=== PATIENT | female | born 1940 | race Caucasian/White ===

== ENCOUNTER → 2019-05-01 10:51 | Outpatient (CLI) | payer MEDICARE, SELFPAY ==
[2019-05-01 11:31] LABS: RBC Urine None Seen (0-5/HPF)
[2019-05-01 12:13] LABS: Add Manual Diff / Slide Review NO; Basophils Absolute Auto 0 /uL (0-100); Basophils Percent Auto 0.8 % (0-2); Eosinophils Absolute Auto 0 /uL (0-450); Eosinophils Percent Auto 0.8 % (2-4); Hematocrit 45.9 % (36-46); Hemoglobin 15.7 g/dL (12.0-16.0); Lymphocytes Absolute Auto 2000 /uL (1100-4500); Lymphocytes Percent Auto 32.3 % (25-40); Mean Corpuscular HGB Conc 34.3 % (30-36); Mean Corpuscular Hemoglobin 29.1 PG (26-34); Mean Corpuscular Volume 84.7 fL (80-100); Monocytes Absolute Auto 500 /uL (0-900); Monocytes Percent Auto 8.1 % (3-14); Neutrophils Absolute Auto 3700 /uL (1500-7000); Platelet Count 251 X10^3/uL (150-400); Red Blood Cell Count 5.41 X10^6/uL (4.0-5.2); Red Cell Distribution Width 13.9 % (11.6-14.8); White Blood Cell Count 6.3 X10^3/uL (4.5-11.0)
[2019-05-01 12:38] LABS: BUN Creatinine Ratio 24.4 (6-22); Blood Urea Nitrogen 22 mg/dL (7-17); Calcium 10.3 mg/dL (8.4-10.2); Carbon Dioxide 29 mmol/L (22-32); Chloride 99 mmol/L (98-107); Estimated Glomerular Filt Rate > 60.0 mL/min (>60); Glucose 109 mg/dL (80-110); HEMOLYSIS < 15 (0-50); Potassium 4.1 mmol/L (3.4-5.1); Sodium 140 mmol/L (137-145)
[2019-05-01 13:05] LABS: Appearance Urine UA SL CLOUDY; Bilirubin Urine UA NEGATIVE (NEGATIVE); Color Urine UA YELLOW; Glucose Urine UA NEGATIVE (Negative); Ketones Urine UA NEGATIVE (NEGATIVE); Leukocyte Esterase Urine UA 1+ (NEGATIVE); Nitrite Urine UA POSITIVE (Negative); Occult Blood Urine UA NEGATIVE (Negative); Protein Urine UA NEGATIVE (Negative); Specific Gravity Urine UA 1.015 (1.000-1.035); Urobilinogen Urine UA 0.2 E.U./dL (0.2)
[2019-05-01 13:28] LABS: pH Urine UA 6.5 (4.5-8.0)
[2019-05-01 13:41] LABS: Bacteria Urine Many (>30); Culture Indicated Urine Specimen Cultured; Squamous Epithelial Cell Urine 1-5 /HPF (0-5/HPF); WBC Urine 10-30/HPF (0-5/HPF)
== END ==
PROVIDERS: PCP Internal Medicine; Referring Provider Orthopaedic Surgery; Visit Provider Orthopaedic Surgery
DX: Z01.818 Encounter for other preprocedural examination (principal); Z01.812 Encounter for preprocedural laboratory examination; N39.9 Disorder of urinary system, unspecified; Z13.1 Encounter for screening for diabetes mellitus; R73.9 Hyperglycemia, unspecified
CPT/HCPCS: 36415; 80048; 81001; 83036; 85025; 87077; 87086; 87186; 93005; 93010

== ENCOUNTER → 2020-01-01 18:43 | Outpatient (ROUT) | payer MEDICARE, SELFPAY ==
[2020-01-01 19:31] LABS: Aspartate Aminotransferase 25 IU/L (14-36); BUN Creatinine Ratio 28.9 (6-22); Blood Urea Nitrogen 22 mg/dL (7-17); C-Reactive Protein Quant 8.3 mg/dL (<1.0); Calcium 9.3 mg/dL (8.4-10.2); Carbon Dioxide 31 mmol/L (22-32); Chloride 101 mmol/L (98-107); Cholesterol 194 mg/dL (140-199); Estimated Glomerular Filt Rate > 60.0 mL/min (>60); Glucose 98 mg/dL (80-110); HDL Cholesterol 40 mg/dL (40-60); HEMOLYSIS < 15 (0-50); LDL Cholesterol Calculated 138 mg/dL (<100); Potassium 3.9 mmol/L (3.4-5.1); Sodium 138 mmol/L (137-145); Triglycerides 79 mg/dL (35-150); Uric Acid 6.5 mg/dL (2.5-6.2)
[2020-01-01 19:42] LABS: Hematocrit 43.4 % (36-46); Hemoglobin 14.3 g/dL (12.0-16.0); Mean Corpuscular HGB Conc 32.9 % (30-36); Mean Corpuscular Hemoglobin 28.5 PG (26-34); Mean Corpuscular Volume 86.5 fL (80-100); Platelet Count 332 X10^3/uL (150-400); Red Blood Cell Count 5.02 X10^6/uL (4.0-5.2); Red Cell Distribution Width 13.8 % (11.6-14.8)
[2020-01-01 20:19] LABS: White Blood Cell Count 7.8 X10^3/uL (4.5-11.0)
[2020-01-01 20:23] LABS: Eosinophils Percent Auto 0.8 % (2-4); Lymphocytes Percent Auto 26.1 % (25-40); Monocytes Percent Auto 5.1 % (3-14); Neutrophils Percent Auto 67.1 % (50-75)
[2020-01-01 20:24] LABS: Add Manual Diff / Slide Review NO; Basophils Absolute Auto 100 /uL (0-100); Basophils Percent Auto 0.9 % (0-2); Eosinophils Absolute Auto 100 /uL (0-450); Lymphocytes Absolute Auto 2000 /uL (1100-4500); Monocytes Absolute Auto 400 /uL (0-900); Neutrophils Absolute Auto 5200 /uL (1500-7000)
[2020-01-01 20:25] LABS: Erythrocyte Sedimentation Rate 59 MM/HR (0-20)
== END ==
PROVIDERS: PCP Internal Medicine; Visit Provider Internal Medicine
DX: I10 Essential (primary) hypertension (principal); E78.2 Mixed hyperlipidemia; M25.50 Pain in unspecified joint; E79.0 Hyperuricemia without signs of inflammatory arthritis and tophaceous disease
CPT/HCPCS: 80048; 80061; 84450; 84550; 85025; 85651; 86140

== ENCOUNTER → 2020-03-06 19:18 | Outpatient (ROUT) | payer MEDICARE, SELFPAY ==
[2020-03-06 19:54] LABS: Add Manual Diff / Slide Review NO; Basophils Absolute Auto 100 /uL (0-100); Basophils Percent Auto 1.1 % (0-2); Eosinophils Absolute Auto 100 /uL (0-450); Eosinophils Percent Auto 1.2 % (2-4); Hematocrit 44.5 % (36-46); Hemoglobin 14.9 g/dL (12.0-16.0); Lymphocytes Absolute Auto 1600 /uL (1100-4500); Lymphocytes Percent Auto 26.2 % (25-40); Mean Corpuscular HGB Conc 33.4 % (30-36); Mean Corpuscular Hemoglobin 28.7 PG (26-34); Mean Corpuscular Volume 86.1 fL (80-100); Monocytes Absolute Auto 400 /uL (0-900); Monocytes Percent Auto 6.5 % (3-14); Neutrophils Absolute Auto 3900 /uL (1500-7000); Platelet Count 223 X10^3/uL (150-400); Red Blood Cell Count 5.17 X10^6/uL (4.0-5.2)
[2020-03-06 20:00] LABS: Alanine Aminotransferase 16 IU/L (<35); Albumin 3.8 g/dL (3.5-5.0); Albumin Globulin Ratio 1.2 (1.0-2.8); Alkaline Phosphatase 87 U/L (38-126); Aspartate Aminotransferase 26 IU/L (14-36); BUN Creatinine Ratio 22.2 (6-22); Bilirubin Total 0.4 mg/dL (0.2-1.3); Bilirubin Unconjugated 0.4 mg/dL (0.0-1.1); Blood Urea Nitrogen 18 mg/dL (7-17); Calcium 9.3 mg/dL (8.4-10.2); Carbon Dioxide 33 mmol/L (22-32); Chloride 100 mmol/L (98-107); Estimated Glomerular Filt Rate > 60.0 mL/min (>60); Globulin 3.2 g/dL (1.7-4.1); Glucose 153 mg/dL (80-110); HEMOLYSIS < 15 (0-50); Potassium 3.6 mmol/L (3.4-5.1); Sodium 138 mmol/L (137-145); Uric Acid 5.9 mg/dL (2.5-6.2)
== END ==
PROVIDERS: PCP Internal Medicine; Visit Provider Internal Medicine
DX: M10.9 Gout, unspecified (principal)
CPT/HCPCS: 80048; 80076; 84550; 85025

== ENCOUNTER → 2020-05-19 18:55 | Outpatient (ROUT) | payer MEDICARE, SELFPAY ==
[2020-05-19 19:37] LABS: BUN Creatinine Ratio 26.7 (6-22); Blood Urea Nitrogen 23 mg/dL (7-17); Calcium 9.9 mg/dL (8.4-10.2); Carbon Dioxide 29 mmol/L (22-32); Chloride 99 mmol/L (98-107); Estimated Glomerular Filt Rate > 60.0 mL/min (>60); Glucose 235 mg/dL (80-110); HEMOLYSIS < 15 (0-50); Potassium 3.4 mmol/L (3.4-5.1); Sodium 137 mmol/L (137-145); Uric Acid 4.1 mg/dL (2.5-6.2)
== END ==
PROVIDERS: PCP Internal Medicine; Visit Provider Internal Medicine
DX: M10.9 Gout, unspecified (principal)
CPT/HCPCS: 80048; 84550

== ENCOUNTER → 2020-06-23 19:35 | Outpatient (ROUT) | payer MEDICARE, SELFPAY ==
[2020-06-23 20:36] LABS: Free T4, Direct Thyroxine 1.17 ng/dL (0.78-2.19)
[2020-06-23 20:48] LABS: Thyroid Stimulating Hormone 2.11 uIU/mL (0.47-4.68)
[2020-06-23 20:59] LABS: Free T3, Triiodothyronine Free 2.95 pg/mL (2.77-5.27)
== END ==
PROVIDERS: PCP Internal Medicine; Visit Provider Internal Medicine
DX: E11.9 Type 2 diabetes mellitus without complications (principal)
CPT/HCPCS: 84436; 84439; 84443; 84481

== ENCOUNTER 2020-07-31 17:25 | Observation (INO) | payer MEDICARE, SELFPAY ==
[2020-07-31] VITALS (10 sets, daily range): BP systolic 134–219; BP diastolic 66–102; PULSE 56–74; RESP 10–30; TEMP 36.7–37.1; O2SAT 96–99; BMI 31.1
--- NOTE | 2020-07-31 17:53 | DI.CT.S_ITS ---
PROCEDURE: CT HEAD/BRAIN WO CON INDICATIONS: Vision changes, concern for CVA/TIA TECHNIQUE: Noncontrast 4.5 mm thick angled axial sections acquired from the foramen magnum to the vertex, with coronal and sagittal reformats. For radiation dose reduction, the following was used: automated exposure control, adjustment of mA and/or kV according to patient size. COMPARISON: None. FINDINGS: Image quality: Excellent. CSF spaces: Basal cisterns are patent. No extra-axial fluid collections. Ventricles are normal in size and shape. Brain: No midline shift. No intracranial masses or hemorrhage. Lee-white matter interface is normal. Skull and face: Calvarium and visualized facial bones are intact, without suspicious lesions. Sinuses: Visualized sinuses and mastoids are clear. IMPRESSION: No acute intracranial abnormality. Dictated by: Alton George M.D. on 07/31/2020 at 18:17 Approved by: Alton George M.D. on 07/31/2020 at 18:19
--- NOTE | 2020-07-31 17:59 | ED.NEUROSD ---
HPI - Neuro Symptoms/Deficit General Chief Complaint: Neuro Symptoms/Deficit Stated Complaint: HEAD LIGHTNESS Time Seen by Provider: 07/31/20 17:52 Source: patient Mode of arrival: Family Vehicle Limitations: no limitations History of Present Illness HPI Narrative: 80-year-old female nonsmoker with history of hypertension presents with her in the chief complaint of an episode of dizziness, ataxia and blurred vision that happened just after lunch today and lasted about 20 minutes. She denies other neurologic symptoms such as trouble with speech, confusion or unilateral numbness, tingling or weakness. She denies any headache, pressure or pain. She denies any recent injury or trauma. She denies any change in medications or diet. She states she has had an episode or 2 like this in the past but never sought medical attention. She was quite hypertensive on arrival but not symptomatic at that time. She denies any history of heart attack or stroke but does say few years ago she had an episode that lasted minutes to hours in which she describes what sounds like an expressive aphasia that resolved and was not pursued or evaluated by her doctors Onset (ago): hour(s) Timing confirmed by: family member Location: ataxia History of same: Yes Severity: mild Quality: improving Relieving factors: none Exacerbating factors: none Context: sudden onset On Anticoagulants: No Associated symptoms: denies other symptoms Treatments Prior to Arrival: Aspirin Related Data Home Medications Medication Instructions Recorded Confirmed allopurinol 300 mg PO DAILY 07/31/20 07/31/20 carvedilol 25 mg PO BID 07/31/20 07/31/20 chlorthalidone 25 mg PO DAILY 07/31/20 07/31/20 zolpidem 5 mg PO BEDTIME 07/31/20 07/31/20 Allergies Allergy/AdvReac Type Severity Reaction Status Date / Time acetaminophen [ACETAMINOPHEN] Allergy Intermediate Verified 07/31/20 17:44 phenyltoloxamine Allergy Intermediate Verified 07/31/20 17:44 [PHENYLTOLOXAMINE] lisinopril [LISINOPRIL] Allergy Unknown Verified 07/31/20 17:44 NOVAGESIC Allergy Intermediate Uncoded 07/31/20 17:44 Review of Systems Constitutional Constitutional: Denies chills, Denies fatigue, Denies fever(s), Denies frequent falls, Denies lethargy and Denies weakness Eyes Eyes: Denies change in vision, Denies eye discharge, Denies irritation and Denies loss of vision ENT Ears, Nose, Mouth, and Throat: Denies change in voice, Denies dizziness, Denies neck pain, Denies sore throat and Denies throat swelling Cardiovascular Cardiovascular: Denies chest pain, Denies irregular heart rhythm, Denies lightheadedness, Denies palpitations, Denies dyspnea, Denies dyspnea on exertion and Denies orthopnea Respiratory Respiratory: Denies cough, Denies dyspnea, Denies dyspnea on exertion and Denies wheezing Gastrointestinal Gastrointestinal: Denies abdominal pain, Denies change in bowel habits, Denies diarrhea, Denies nausea and Denies vomiting Musculoskeletal Musculoskeletal: Denies neck pain and Denies numbness Integumentary/Breasts Skin/Breast: Denies pruritus, Denies erythema, Denies rash and Denies wounds Neurologic Neurologic: Denies behavioral changes, Denies confusion, Denies dizziness, Denies frequent falls, Denies loss of vision, Denies numbness and Denies weakness Psychiatric Psychiatric: Denies anxiety, Denies behavioral changes, Denies confusion, Denies depression, Denies homicidal ideation and Denies suicidal ideation Endocrine Endocrine: Denies fatigue, Denies flushing and Denies palpitations Hematologic/Lymphatic Hematologic/Lymphatic: Denies easy bruising On Anticoagulants: No Allergic/Immunologic Allergic/Immunologic: Denies urticaria, Denies throat swelling and Denies wheezing Patient History Medical History (Updated 07/31/20 @ 22:39 by FREEDOM Castillo-KEVON) Essential hypertension Gout Hyperlipidemia Surgical History (Updated 07/31/20 @ 22:32 by FREEDOM Castillo-KEVON) No history of previous surgery Family History Mother Heart attack Father Heart attack Social History household members: spouse Smoking Status: Never smoker Smoking Status: Never smoker alcohol intake frequency: 0-2 drinks per day Substance Use Type: does not use Exam Narrative Exam Narrative: GENERAL: [80] year old patient appears stated age. Well-developed patient, in mild distress. HEAD: Atraumatic. Normocephalic. EYES: Pupils equal round and reactive. Extraocular motions intact. No scleral icterus. No injection or drainage. ENT: Nose without bleeding, purulent drainage. Throat without erythema, tonsillar hypertrophy or exudate. Airway patent. NECK: Trachea midline. Non tender CARDIOVASCULAR: Regular rate and rhythm without murmurs, gallops, or rubs. RESPIRATORY: Clear to auscultation. Breath sounds equal bilaterally. No wheezes, rales, or rhonchi. GASTROINTESTINAL: Abdomen soft, non-tender, nondistended. EXTREMITIES: No edema or joint tenderness. BACK: Nontender without deformity or crepitance. No flank tenderness. NEURO: AOx3. SKIN: No rash or erythema of visible areas NIH Stroke Scale 1a. LOC: Patient is alert and keenly responsive (0) 1b. LOC Questions: Patient answers both LOC questions accurately (0) 1c. LOC Commands: Patient performs both tasks correctly (0) 2. Best Gaze: Normal (0) 3. Visual: No visual loss (0) 4. Facial palsy: Normal symmetrical movements (0) 5. Motor arm: No drift (0) 6. Motor leg: No drift (0) 7. Limb ataxia: Absent (0) 8. Sensory: Normal (0) 9. Best language: No aphasia; normal (0) 10. Dysarthria: Normal (0) 11. Extinction and inattention: No abnormality (0) NIHSS: 0 Initial Vital Signs Initial Vital Signs: Vital Signs Temperature 98.8 F 07/31/20 17:37 Pulse Rate 74 07/31/20 17:37 Respiratory Rate 19 07/31/20 17:37 Blood Pressure 219/102 H 07/31/20 17:37 Pulse Oximetry 99 07/31/20 17:37 Course Orders Ordered: ED Orders 07/31/20 17:53 CT head/brain wo con Stat EKG-12 Lead Stat 07/31/20 18:40 Complete Blood Count AUTO DIFF Stat Comprehensive Metabolic Panel Stat Lipase Stat Troponin & CK Cardiac Panel Stat 07/31/20 19:00 COVID19 - ADMIT (SOIL SAMPLER swab/PCR) Stat Aspirin (Aspirin Ec 325 Mg Tablet) 325 mg PO DAILY JOSUÉ Clopidogrel Bisulfate (Clopidogrel 75 Mg Tablet) 75 mg PO DAILY JOSUÉ Lactated Ringer's (Lactated Ringers) 1,000 mls @ 84 mls/hr IV CONT JOSUÉ Last Admin: 08/01/20 00:13 Dose: 84 mls/hr Documented by: DLOUIS Magnesium Hydroxide (Magnesium Hydroxide 30 Ml Udc) 30 ml PO DAILY PRN PRN Reason: Constipation Naloxone HCl (Naloxone 0.4 Mg/Ml Vial) 0.2 mg IV Q2MIN PRN PRN Reason: Opiate Reversal Ondansetron HCl (Ondansetron 4 Mg Odt) 4 mg PO Q8HR PRN PRN Reason: Nausea And Vomiting Oxycodone HCl (Oxycodone Ir 5 Mg Tablet) 5 mg PO Q6HR PRN PRN Reason: Pain, Moderate (4-6) Sennosides (Sennosides 8.6 Mg Tablet) 17.2 mg PO BEDTIME [facility] Last Admin: 07/31/20 23:06 Dose: Not Given Documented by: ELMER Discontinued Medications Aspirin (Aspirin 81 Mg Chew Tab) 324 mg PO NOW ONE Stop: 07/31/20 18:21 Last Admin: 07/31/20 18:47 Dose: Not Given Documented by: ELZBIETA Atorvastatin Calcium (Atorvastatin 20 Mg Tablet) 80 mg PO BEDTIME [facility] Last Admin: 07/31/20 23:29 Dose: Not Given Documented by: HARLEY Clopidogrel Bisulfate (Clopidogrel 75 Mg Tablet) 75 mg PO DAILY [facility] Enoxaparin Sodium (Enoxaparin 40 Mg/0.4 Ml Syringe) 40 mg SUBCUT DAILY [facility] Vital Signs Vital signs: Vital Signs - 8 hr 07/31/20 18:45 07/31/20 19:00 07/31/20 19:30 Pulse Rate 63 63 57 L Respiratory Rate 16 10 L 30 H Blood Pressure 134/82 Pulse Oximetry 96 96 96 07/31/20 20:00 07/31/20 20:30 Pulse Rate 56 L 56 L Respiratory Rate 25 H 27 H Blood Pressure Pulse Oximetry 96 97 MDM - Neuro Symptoms/Deficit Lab Data Result diagrams: 07/31/20 18:40 07/31/20 18:40 Labs: Lab Results 07/31/20 07/31/20 07/31/20 Range/Units 18:40 18:40 18:40 WBC 6.7 (4.5-11.0) X10^3/uL RBC 5.10 (4.0-5.2) X10^6/uL Hgb 14.9 (12.0-16.0) g/dL Hct 44.3 (36-46) % MCV 86.8 (80-100) fL MCH 29.1 (26-34) PG MCHC 33.5 (30-36) % RDW 14.8 (11.6-14.8) % Plt Count 203 (150-400) X10^3/uL Neut % (Auto) 60.2 (50-75) % Lymph % (Auto) 30.5 (25-40) % Hernando % (Auto) 6.7 (3-14) % Eos % (Auto) 1.9 L (2-4) % Baso % (Auto) 0.7 (0-2) % Neut # (Auto) 4000 (0430-6881) /uL Lymph # (Auto) 2000 (2551-0285) /uL Hernando # (Auto) 400 (0-900) /uL Eos # (Auto) 100 (0-450) /uL Baso # (Auto) 0 (0-100) /uL Sodium 140 (137-145) mmol/L Potassium 3.4 (3.4-5.1) mmol/L Chloride 101 (98-107) mmol/L Carbon Dioxide 31 (22-32) mmol/L BUN 29 H (7-17) mg/dL Creatinine 1.04 (0.52-1.04) mg/dL Estimated GFR 51.3 L (>60) mL/min BUN/Creatinine Ratio 27.9 H (6-22) Glucose 119 H (80-110) mg/dL Calcium 9.7 (8.4-10.2) mg/dL Magnesium (1.6-2.3) mg/dL Total Bilirubin 0.3 (0.2-1.3) mg/dL AST 35 (14-36) IU/L ALT 21 (<35) IU/L Alkaline Phosphatase 84 (38-126) U/L Total Creatine Kinase 61 (30-135) U/L CK-MB (CK-2) TNP CK-MB (CK-2) Rel Index TNP Troponin I < 0.012 (0.01-0.034) ng/mL Total Protein 7.4 (6.3-8.2) g/dL Albumin 4.1 (3.5-5.0) g/dL Globulin 3.3 (1.7-4.1) g/dL Albumin/Globulin Ratio 1.2 (1.0-2.8) Triglycerides 150 (35-150) mg/dL Cholesterol 230 H (140-199) mg/dL LDL Cholesterol, Calc 166 H (<100) mg/dL HDL Cholesterol 34 L (40-60) mg/dL Lipase 197 (23-300) U/L SARS-CoV-2 (PCR) (Negative) 07/31/20 07/31/20 Range/Units 18:40 19:00 WBC (4.5-11.0) X10^3/uL RBC (4.0-5.2) X10^6/uL Hgb (12.0-16.0) g/dL Hct (36-46) % MCV (80-100) fL MCH (26-34) PG MCHC (30-36) % RDW (11.6-14.8) % Plt Count (150-400) X10^3/uL Neut % (Auto) (50-75) % Lymph % (Auto) (25-40) % Hernando % (Auto) (3-14) % Eos % (Auto) (2-4) % Baso % (Auto) (0-2) % Neut # (Auto) (6643-5644) /uL Lymph # (Auto) (8933-0980) /uL Hernando # (Auto) (0-900) /uL Eos # (Auto) (0-450) /uL Baso # (Auto) (0-100) /uL Sodium (137-145) mmol/L Potassium (3.4-5.1) mmol/L Chloride (98-107) mmol/L Carbon Dioxide (22-32) mmol/L BUN (7-17) mg/dL Creatinine (0.52-1.04) mg/dL Estimated GFR (>60) mL/min BUN/Creatinine Ratio (6-22) Glucose (80-110) mg/dL Calcium (8.4-10.2) mg/dL Magnesium 2.0 (1.6-2.3) mg/dL Total Bilirubin (0.2-1.3) mg/dL AST (14-36) IU/L ALT (<35) IU/L Alkaline Phosphatase (38-126) U/L Total Creatine Kinase (30-135) U/L CK-MB (CK-2) CK-MB (CK-2) Rel Index Troponin I (0.01-0.034) ng/mL Total Protein (6.3-8.2) g/dL Albumin (3.5-5.0) g/dL Globulin (1.7-4.1) g/dL Albumin/Globulin Ratio (1.0-2.8) Triglycerides (35-150) mg/dL Cholesterol (140-199) mg/dL LDL Cholesterol, Calc (<100) mg/dL HDL Cholesterol (40-60) mg/dL Lipase (23-300) U/L SARS-CoV-2 (PCR) Negative (Negative) Imaging Data CT scan - head: Radiologist's Impression: Sheela Frazier 80 F [address] [id number] Scan ReportSigned Patient: Sheela Frazier DMR#: [id number]: 1940cct:[id number]/Sex: 80 / FDate of Service: 07/31/20Loc: EDAccession Number: [id number] Procedure: CT head/brain wo con Ordering Provider: Theodore Iyer D.O. PROCEDURE: CT HEAD/BRAIN WO CON INDICATIONS: Vision changes, concern for CVA/TIA TECHNIQUE: Noncontrast 4.5 mm thick angled axial sections acquired from the foramen magnum to the vertex, with coronal and sagittal reformats. For radiation dose reduction, the following was used: automated exposure control, adjustment of mA and/or kV according to patient size. COMPARISON: None. FINDINGS: Image quality: Excellent. CSF spaces: Basal cisterns are patent. No extra-axial fluid collections. Ventricles are normal in size and shape. Brain: No midline shift. No intracranial masses or hemorrhage. Lee-white matter interface is normal. Skull and face: Calvarium and visualized facial bones are intact, without suspicious lesions. Sinuses: Visualized sinuses and mastoids are clear. IMPRESSION: No acute intracranial abnormality. Dictated by: Alton George M.D. on 07/31/2020 at 18:17 Approved by: Alton George M.D. on 07/31/2020 at 18:19 ECG Data Interpretation: EKG is normal sinus rhythm rate [ 58] and free of any signs of ischemia or ectopy. No ST segmental elevation or depression. No T wave inversions Stroke Core Measures Exclusion Criteria TPA in CVA: Symptom Onset >3 or 4.5 Hours Discharge Plan Departure Patient Disposition: Admitted as Observation Clinical Impression: Transient cerebral ischemia Admit Date/Time: 07/31/20 20:39 Admit Provider: Alayna Flores
[2020-07-31 18:52] LABS: Add Manual Diff / Slide Review NO; Basophils Absolute Auto 0 /uL (0-100); Basophils Percent Auto 0.7 % (0-2); Eosinophils Absolute Auto 100 /uL (0-450); Eosinophils Percent Auto 1.9 % (2-4); Hematocrit 44.3 % (36-46); Hemoglobin 14.9 g/dL (12.0-16.0); Lymphocytes Absolute Auto 2000 /uL (1100-4500); Lymphocytes Percent Auto 30.5 % (25-40); Mean Corpuscular HGB Conc 33.5 % (30-36); Mean Corpuscular Hemoglobin 29.1 PG (26-34); Mean Corpuscular Volume 86.8 fL (80-100); Monocytes Absolute Auto 400 /uL (0-900); Monocytes Percent Auto 6.7 % (3-14); Neutrophils Absolute Auto 4000 /uL (1500-7000); Neutrophils Percent Auto 60.2 % (50-75); Platelet Count 203 X10^3/uL (150-400); Red Cell Distribution Width 14.8 % (11.6-14.8); White Blood Cell Count 6.7 X10^3/uL (4.5-11.0)
[2020-07-31 18:58] LABS: Alanine Aminotransferase 21 IU/L (<35); Albumin 4.1 g/dL (3.5-5.0); Albumin Globulin Ratio 1.2 (1.0-2.8); Alkaline Phosphatase 84 U/L (38-126); Aspartate Aminotransferase 35 IU/L (14-36); BUN Creatinine Ratio 27.9 (6-22); Bilirubin Total 0.3 mg/dL (0.2-1.3); Blood Urea Nitrogen 29 mg/dL (7-17); Calcium 9.7 mg/dL (8.4-10.2); Carbon Dioxide 31 mmol/L (22-32); Chloride 101 mmol/L (98-107); Creatine Kinase 61 U/L (30-135); Estimated Glomerular Filt Rate 51.3 mL/min (>60); Globulin 3.3 g/dL (1.7-4.1); Glucose 119 mg/dL (80-110); HEMOLYSIS 31 (0-50); Lipase 197 U/L (23-300); Potassium 3.4 mmol/L (3.4-5.1); Sodium 140 mmol/L (137-145); Total Protein 7.4 g/dL (6.3-8.2)
[2020-07-31 19:10] LABS: Troponin I < 0.012 ng/mL (0.01-0.034)
[2020-07-31 20:02] LABS: COVID19 - ADMIT (NP swab/PCR) Negative (Negative)
--- NOTE | 2020-07-31 20:40 | DI.MRI.S_ITS ---
PROCEDURE: MR STROKE Pre- and post-contrast brain MRI, non-contrast brain MR angiogram, pre- and postcontrast neck MR angiogram INDICATIONS: TIA TECHNIQUE: Brain: Noncontrast axial T1 spin echo, axial T2 fast spin echo, sagittal and axial FLAIR, coronal T2 fast spin echo, axial gradient echo, axial diffusion and ADC through the brain. After the administration of contrast, axial 3D VIBE of the cranial vasculature and brain. Brain MRA: Non-contrast 3-D time of flight MR angiogram, with multiple wwpziif-qmgetcrsx-nxistwgfvb (MIP) reformats performed. Neck MRA: Axial and sagittal TruFISP through the neck. Coronal dynamic MR angiogram during administration of contrast in the arterial and venous phases, with 3-dimenstional qtcablr-btbbrbann-wjcjyrotuv (MIP) reformats constructed from subtraction images. COMPARISON: [facility], CT, CT HEAD/BRAIN WO CON, 07/31/2020, 17:58. FINDINGS: Image quality: Excellent. BRAIN: CSF spaces: Ventricles are normal in size and shape. Basal cisterns are patent. No extra-axial fluid collections. Brain: No intracranial bleeds or mass effects. Lee-white matter interface is normal. Diffusion weighted images show no acute ischemic insults. Brainstem appears normal. Normal intravascular flow voids are present. No abnormal intracranial enhancement. Skull and face: Calvarial marrow signal is normal. Orbits appear normal. Sinuses: Sinuses and mastoids are clear. BRAIN MR ANGIOGRAM: Anterior circulation: Intracranial internal carotid arteries are normal in size and enhancement. The flow within the paired anterior cerebral arteries is normal and symmetric. The flow within the middle cerebral arteries is normal and symmetric. The anterior communicating artery is seen. No stenoses, occlusions, or aneurysms. Posterior circulation: The visualized portions of the vertebral arteries demonstrate normal caliber, and join to form a normal appearing basilar artery. The flow within the posterior cerebral arteries is normal and symmetric. No stenoses, occlusions, or aneurysms. NECK MR ANGIOGRAM: Carotids: Great vessels demonstrate a conventional anatomy as they arise from the aortic arch. The origins of the common carotid arteries appear patent. The calibers and courses of both common carotid arteries are normal. The bifurcation regions appear normal bilaterally. The internal carotid arteries demonstrate normal course and caliber. Posterior circulation: The origins of the vertebral arteries appear patent. More superior portions of both vertebral arteries demonstrate normal course and caliber, and join to form a normal appearing basilar artery. Miscellaneous: Subclavian arteries appear patent. Pre-contrast images through the neck show no soft tissue abnormalities. IMPRESSION: BRAIN MRI: Normal brain MRI, no evidence of prior or subacute stroke. BRAIN MR ANGIOGRAM: Normal intracranial MR angiogram. NECK MR ANGIOGRAM: Normal cervical MR angiogram. Dictated by: Gold Nazario M.D. on 08/01/2020 at 10:12 Approved by: Gold Nazario M.D. on 08/01/2020 at 10:13
--- NOTE | 2020-07-31 20:44 | DI.ECHO.S_ITS ---
[facility] +---------+ : : [address] : : : : [id number] : : : : Phone: [phone] Echocardiogram Report + + :Name: JULIÁN THOMAS Study Date: 08/01/2020 Height: 62 in : :[facility] ReadingLocation: Weight: 170 lb : : Gender: Female BSA: 1.8 m2 : :: 1940 Age: 80 yrs BP: 141/82 mmHg: :Reason For Study: TIA : :Ordering Physician: ALEJANDRA, : :SON Performed By: Ericka Garcia : :Referring: SON ROBERTS : + + Interpretation Summary The left ventricle is normal in size and wall thickness. The ejection fraction is estimated to be 60-65%. Diastolic parameters suggest a relaxation abnormality of the left ventricle, consistent with probable normal filling pressures. The right ventricle is normal in size and function. The right ventricular systolic pressure is estimated to be at least 34 mmHg based on an estimated right atrial pressure of 3 mm Hg. The left atrial size is normal. The right atrium is normal in size. 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 This was noted on prior study on 01/31/2018. This is not well visualized on both studies. This could be a source of TIA. Recommend anti-platelet therapy if not other source of TIA is found. There is mild mitral regurgitation. There is no other significant valvular heart disease. The aortic root is normal size. There is a trivial pericardial effusion noted. Procedure: A two-dimensional transthoracic echocardiogram with color flow and Doppler was performed. The study quality was technically adequate. Comparison is made with the echocardiogram of 01/31/2018. The patient was in sinus rhythm with heart rates between 56-66 bpm during the exam. Left Ventricle: The left ventricle is normal in size and wall thickness. The ejection fraction is estimated to be 60-65%. Diastolic parameters suggest a relaxation abnormality of the left ventricle, consistent with probable normal filling pressures. Right Ventricle: The right ventricle is normal in size and function. Atria: The left atrial size is normal. The right atrium is normal in size. There is no Doppler evidence for an interatrial shunt. 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 Mitral Valve: The mitral valve is normal in structure and function. There is mild mitral regurgitation. Aortic Valve: The aortic valve is trileaflet. The aortic valve opens well. There is no aortic valve stenosis. No aortic regurgitation is present. Tricuspid Valve: The tricuspid valve is normal in structure and function. There is mild to moderate tricuspid regurgitation. The right ventricular systolic pressure is estimated to be at least 34 mmHg based on an estimated right atrial pressure of 3 mm Hg. Pulmonic Valve: The pulmonic valve leaflets are thin and pliable; valve motion is normal. There is no pulmonic valvular regurgitation. There is no other significant valvular heart disease. Great Vessels: The aortic root is normal size. The dimensions of the ascending aorta are normal. The IVC is of normal diameter and collapses greater than 50% with a sniff. This suggests a low right atrial pressure of 3 mm Hg. Pericardium/ Pleura There is a trivial pericardial effusion noted. There is no pleural effusion. MMode/2D Measurements & Calculations LVIDd: 4.4 cm LVOT diam: 2.0 cm LVIDs: 2.9 cm Ao root diam: 2.7 cm FS: 34.3 % asc Aorta Diam: 3.1 cm IVSd: 0.87 cm Ao Arch Diam (Prox Trans): 2.8 cm LVPWd: 0.88 cm LV dejesus. diameter/BSA (cm/m^2): 2.4 LV sys. diameter/BSA (cm/m^2): 1.6 LA A2 area: 14.4 cm2 RA long axis: 4.7 cm LA A4 area: 12.7 cm2 RA area: 11.1 cm2 LA length (vol): 4.1 cm RA vol: 22.1 ml LA vol: 38.2 ml RA : 12.4 ml/m2 LA vol index: 21.4 ml/m2 IVC diam: 1.4 cm RVD1 (basal): 3.0 cm RVD2 (mid): 2.7 cm TAPSE: 1.9 cm Doppler Measurements & Calculations Ao V2 max: 133.5 cm/sec LVOT Max Triston: 119.6 cm/sec Ao V2 mean: 90.9 cm/sec LV V1 max P.7 mmHg Ao max P.1 mmHg LV V1 VTI: 27.7 cm Ao mean P.7 mmHg LIGIA(I,D): 2.6 cm2 Ao V2 VTI: 33.3 cm LIGIA(V,D): 2.8 cm2 sev ratio: 0.83 LIGIA indexed to BSA (cm^2/m^2): 1.5 MV E max triston: 72.2 cm/sec TR max triston: 279.9 cm/sec MV A max triston: 91.8 cm/sec TR max P.3 mmHg MV E/A: 0.79 PA V2 max: 115.1 cm/sec Med Peak E' Triston: 6.0 cm/sec PA V2 mean: 81.9 cm/sec E/E' med: 12.0 PA mean P.0 mmHg Lat Peak E' Triston: 7.8 cm/sec PA pr(Accel): 51.0 mmHg E/E' lat: 9.3 E/e' average: 10.7 MV dec time: 0.22 sec SV(LVOT): 87.3 ml Reading Physician:01:46 PM
--- NOTE | 2020-07-31 20:55 | P.HP_ITS ---
History of Present Illness History of Present Illness Date Patient Seen: 07/31/20 Time Patient Seen: 20:55 Chief complaint: HEAD LIGHTNESS Narrative: Patient is a 80-year-old female Sheela Frazier who presented to the ED with her in the chief complaint of an episode of dizziness, ataxia and blurred vision that happened just after lunch today and lasted about 20 minutes. She denies other neurologic symptoms such as trouble with speech, confusion or unilateral numbness, tingling or weakness. She denies any headache, pressure or pain. She denies any recent injury, illness, or trauma. She denies any change in medications or diet. She states she has had an episode or two like this in the past but never sought medical attention. She was quite hypertensive on arrival but not symptomatic at that time. She denies any history of heart attack or stroke but does say few years ago she had an episode that lasted minutes to hours in which she describes what sounds like an expressive aphasia that resolved and was not pursued or evaluated by her doc tors. Patient is asymptomatic upon admit. Is resting comfortably in bed and has no concerns at this time. Patient's only medical history is hypertension, hyperlipidemia, and gout. She states that she had a complete cardiac workup history approximately 2-3 years ago without issue. The patient is unable to tell me what her medications are, as she believes they would be in our system. There is no chart history of this patient in our system. Patient's spouse will bring us her list of medications as soon as he is able. Patient refused atorvastatin, stating that she cannot tolerate statin medication and takes a non-statin medication. Patient states that she has not received the COVID vaccination nor will she due to prior reactions to previous vaccines. Patient continues to be asymptomatic with an NIH score of 0. Patient's initial blood pressure 219/102 has now resolved to 134/82 patient's vitals are unremarkable, patient's blood count and chemistries are for the most part unremarkable with the exception of a GFR 51.3. Patient's head CT is without any abnormal TS, EKG: Sinus rhythm with a ventricular rate of 58, without ST or T-wave changes. Patient is admitted for TIA/stroke rule out, patient is outside tPA protocol window. Patient History Medical History (Updated 07/31/20 @ 22:39 by WAQAS Castillo) Essential hypertension Gout Hyperlipidemia Surgical History ([facility] 07/31/20 @ 22:32 [facility] No history of previous surgery Family & Social History Family History Mother Heart attack Father Heart attack Safety & Behavioral: Feels Safe in Current Yes Environment Been Physically Hurt or No Threatened By a Person Tobacco & Substance use: Smoking Status Never smoker alcohol intake frequency 0-2 drinks per day Substance Use Type does not use Meds Home Medications and Allergies Home Medications Medication Instructions Recorded Confirmed Type allopurinol 300 mg PO DAILY 07/31/20 07/31/20 History carvedilol 25 mg PO BID 07/31/20 07/31/20 History chlorthalidone 25 mg PO DAILY 07/31/20 07/31/20 History zolpidem 5 mg PO BEDTIME 07/31/20 07/31/20 History Allergies Allergy/AdvReac Type Severity Reaction Status Date / Time acetaminophen [ACETAMINOPHEN] Allergy Intermediate Verified 07/31/20 17:44 phenyltoloxamine Allergy Intermediate Verified 07/31/20 17:44 [PHENYLTOLOXAMINE] lisinopril [LISINOPRIL] Allergy Unknown Verified 07/31/20 17:44 NOVAGESIC Allergy Intermediate Uncoded 07/31/20 17:44 Review of Systems Review of Systems ROS: Yes All systems reviewed with the patient and are negative except as otherwise documented Exam Vital Signs (past 8 hours): - 07/31/20 17:37 07/31/20 17:43 07/31/20 18:45 Temperature 98.8 F Pulse Rate 74 69 63 Respiratory Rate 19 16 Blood Pressure 219/102 H 179/84 H 134/82 Pulse Oximetry 99 97 96 Oxygen Delivery Method Room Air Narrative Exam Narrative: General: Patient is a well-developed, well-nourished female in no distress at this time. HEENT: Normocephalic, atraumatic, extraocular muscles intact, oral pharynx is clear and mucous membranes are moist. Neck is supple and symmetric, trachea is midline, no adenopathy, no thyroid enlargement, nontender, no masses palpated. Negative for JVD Chest: Normal AP diameter and contour without kyphoscoliosis, no nasal flaring, retractions, or tachypneic labored Lungs: Auscultation of all lung alejo are clear without adventitious sounds, wheezes, rhonchi, or rales. Cardio: S1 & S2 with regular rate and rhythm without murmur, rubs, or gallops, no carotid bruit, no cardiac pulsations present. Abdomen: Soft nontender, negative for organomegaly, or masses. Bowel sounds are present in all 4 quadrants without guarding or rebound, no CVA tenderness. Musculoskeletal: Muscle strength and tone are equal within normal limits, no deformity, crepitus, effusions, cyanosis, clubbing or edema present. Full range of motion intact radial and pedal pulses are normal. Skin: Warm dry and intact without rashes, ulcerations or petechiae. Neuro: Alert and orientated x3, strength is +5/5 in all extremities, sensation to touch intact, no gross deficits noted of cranial nerves. Psych: Patient has a well-kept appearance, appropriate affect, mental status attitude thought context and judgment are appropriate for age. Objective Labs Result Diagrams: 07/31/20 18:40 07/31/20 18:40 Labs: Laboratory Results - last 24 hr 07/31/20 07/31/20 07/31/20 18:40 18:40 19:00 WBC 6.7 RBC 5.10 Hgb 14.9 Hct 44.3 MCV 86.8 MCH 29.1 MCHC 33.5 RDW 14.8 Plt Count 203 Neut % (Auto) 60.2 Lymph % (Auto) 30.5 [place] % (Auto) 6.7 Eos % (Auto) 1.9 L Baso % (Auto) 0.7 Neut # (Auto) 4000 Lymph # (Auto) 2000 [place] # (Auto) 400 Eos # (Auto) 100 Baso # (Auto) 0 Sodium 140 Potassium 3.4 Chloride 101 Carbon Dioxide 31 BUN 29 H Creatinine 1.04 Estimated GFR 51.3 L BUN/Creatinine Ratio 27.9 H Glucose 119 H Calcium 9.7 Total Bilirubin 0.3 AST 35 ALT 21 Alkaline Phosphatase 84 Total Creatine Kinase 61 CK-MB (CK-2) TNP CK-MB (CK-2) Rel Index TNP Troponin I < 0.012 Total Protein 7.4 Albumin 4.1 Globulin 3.3 Albumin/Globulin Ratio 1.2 Lipase 197 SARS-CoV-2 (PCR) Negative Assessment & Plan Assessment & Plan narrative: Patient is a 80-year-old female with a history of hypertension, hyperlipidemia and gout who presented to the ED with neurological deficit that had resolved at the time of admission. Patient has remained asymptomatic without further issue. Patient has a significant family history of heart attack without stroke history. The patient will be admitted for observation with a stroke MR and echo tomorrow. Patient's expected length of stay less than 2 midnights. 1. Neurological deficit (blurry vision/ataxia/dizziness) rule out possible TIA, acute, guarded, not present on admission -differential diagnosis TIA, stroke symptoms lasting greater than 24 hours, ischemic stroke, intracranial hemorrhage, subdural hematoma, epidural hematoma, seizure, brain tumor, migraine, vertigo, hypoglycemia, Adnnielle [place] syndrome, multiple sclerosis, aortic dissection -Admit to telemed, Neuro check Qshift, V/S q.4 hours, notify provider for temp greater than 38 C, , heart rate >100 -treat systolic blood pressure>220 or diastolic blood pressure> 120 -activity as tolerated with assistance, strict fall precautions. -supplemental O2 to maintain> 94%, check capillary blood glucose q.6 hours. -Diet NPO until swallow evaluation is done, then Heart Healthy if cleared -fluids:LR @84cc/hr due to mild elevation in BUN 29, BUN/Continuity Manager R:27.9, GFR 51.3 most likely related to dehydration. -Medications: Aspirin 325 mg p.o. q.day within 48 hours, Plavix 75 mg daily. Patient refused- Lipitor 80 mg-due to statin intolerance. -labs , PT/INR, bMP, TSH, troponins,hemoglobin A1c, Lipid panel -stroke MR and echo ordered for tomorrow -discharge planning establish patient has a safe home environment if going home 2. Essential hypertension, acute on chronic, present on admission-uncontrolled -as evidence by admitting b/p 219/102 -continue patient's home medication-when her spouse provides full list. As patient is unable to recall her medications at this time. 3. Hyperlipidemia, chronic, not present on admission, control unknown -order lipid panel -continue patient's medications when list is provided. 4. Obesity as evidence by BMI of 31.1, acute on chronic, present on admission -consideration will be given to dietary counseling Code status:Full Surrogate decision maker:Moise Frazier-spouse COVID vaccination: Patient refuses due to allergy to previous vaccines. COVID PCR: Negative VTE/DVT prophylaxis: Patient placed on Plavix 75 mg and SCDs Scores GCS Hammond coma scale eye opening: Spontaneous Hammond coma scale verbal response: Orientated Denise coma scale motor response: Obey commands Denise coma scale total score: 15 NIHSS Level of Conciousness: Alert, keenly responsive Ask month/age: Answers both questions correctly. Open/close eyes, close hand: Performs both tasks correctly Best gaze horizontal: Normal Visual alejo: No visual loss Facial palsy: Normal symetrical movement Left arm drift: No drift for full 10 sec Right arm drift: No drift for full 10 sec Left leg drift: No drift for full 5 sec Right leg drift: No drift for full 5 sec Limb ataxia: Absent Sensory on face/arms/legs: Normal, no sensory loss Best language: No aphasia, normal Dysarthria: Normal Extinction or inattention: No abnormality Total NIH Stroke scale score: 0 Wells' Criteria for PE Clinical signs and symptoms of DVT: No PE is #1 Dx or equally likely: No Heart rate > 100: No Immobilization at least 3 days or surg in previous 4 weeks: No History of PE or DVT: No Hemoptysis: No Malignancy w/Treatment within 6 months or palliative: No Wells' PE Score total: 0
[2020-07-31 21:15] LABS: Cholesterol 230 mg/dL (140-199); HDL Cholesterol 34 mg/dL (40-60); LDL Cholesterol Calculated 166 mg/dL (<100); Triglycerides 150 mg/dL (35-150)
[2020-07-31 21:27] LABS: INR 1.1 (0.9-1.3); Prothrombin Time 12.4 SECONDS (10.1-12.7)
[2020-08-01] VITALS (8 sets, daily range): BP systolic 135–144; BP diastolic 76–91; PULSE 61–63; RESP 14–20; TEMP 36.7–36.9; O2SAT 96–99
[2020-08-01] MEDS: LACTATED RINGERS 1,000 ML 84 ML IV (00:13)
[2020-08-01 04:30] LABS: RBC Urine None Seen (0-5/HPF)
[2020-08-01 04:31] LABS: Appearance Urine UA CLEAR; Bilirubin Urine UA NEGATIVE (NEGATIVE); Color Urine UA YELLOW; Glucose Urine UA NEGATIVE (Negative); Ketones Urine UA NEGATIVE (NEGATIVE); Leukocyte Esterase Urine UA TRACE (NEGATIVE); Nitrite Urine UA NEGATIVE (Negative); Occult Blood Urine UA NEGATIVE (Negative); Protein Urine UA NEGATIVE (Negative); Specific Gravity Urine UA 1.025 (1.000-1.035); Urobilinogen Urine UA 0.2 E.U./dL (0.2)
[2020-08-01 04:44] LABS: Bacteria Urine Few (2-10); Culture Indicated Urine Specimen Cultured; Squamous Epithelial Cell Urine 1-5 /HPF (0-5/HPF); WBC Urine 1-5/HPF (0-5/HPF)
[2020-08-01 06:47] LABS: BUN Creatinine Ratio 31.1 (6-22); Blood Urea Nitrogen 23 mg/dL (7-17); Calcium 9.3 mg/dL (8.4-10.2); Carbon Dioxide 29 mmol/L (22-32); Chloride 104 mmol/L (98-107); Estimated Glomerular Filt Rate > 60.0 mL/min (>60); Glucose 104 mg/dL (80-110); HEMOLYSIS < 15 (0-50); Potassium 3.5 mmol/L (3.4-5.1); Sodium 140 mmol/L (137-145)
[2020-08-01 06:56] LABS: NT-proBNP (BNP-Adult 18+) 74 pg/mL (<450)
[2020-08-01 06:59] LABS: Troponin I < 0.012 ng/mL (0.01-0.034)
[2020-08-01] MEDS: ASPIRIN EC 325 MG TABLET PO (09:17)
[2020-08-01] MEDS: CLOPIDOGREL 75 MG TABLET PO (09:18)
--- NOTE | 2020-08-01 09:25 | PC.NURSE ---
Addendum entered by Erin Manuel R.N. 08/01/20 14:33: Patient and given extensive discharge instructions regarding s/s of stroke, f/u appointment with PCP, and medication. Patient and verbalized understanding. Prescriptions given to patient's . Tele removed, IV removed. Patient discharged via wheelchair with aide assist. Addendum entered by Erin Manuel R.N. 08/01/20 09:33: Patient off unit for MRI Original Note: Patient a/o x 4, denies blurred vision at this time. Lungs CTA. Tele on, pulses equal, no edema noted. Patient denies SOB, dizziness or lightheadedness. Up to restroom with SBA. Voiding. Is unable to recall home medications even when prompted with patient summary, awaiting medication list from . Patient reassured. Call light in reach. Denies further needs at this time.
--- NOTE | 2020-08-01 10:37 | PT.IIE ---
Surgical History (Last Updated 07/31/20 @ 22:32 by Alayna Flores [facility]) No history of previous surgery Medical History (Last Updated 07/31/20 @ 22:39 by Alayna Flores [facility]) Essential hypertension Gout Hyperlipidemia Physical Therapy Inpatient Evaluation/Re-Eval M1 PT/OT-IP Prior Functional Status Start: 08/01/20 11:03 Freq: NEEDED Status: Active Protocol: Document 08/01/20 10:37 AB (Rec: 08/01/20 11:14 AB [id number]) Medical Review Prior Functional Status Medical History Reviewed Yes Communication able to make needs known Mobility and Gait pt stated that she is independent with all mobilities and ambulation without AD but occasionally uses a 4WW due to her gout Social History Household Members spouse Living Arrangements House Number of Floors (Floors) One Floor Number of Stairs To Enter/Railing? 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 Employment Status Retired Additional Social History Comment stated that she has a recliner chair that she sleeps on sometimes M2 PT-IP Current Condition Start: 08/01/20 11:03 Freq: NEEDED Status: Active Protocol: Document 08/01/20 10:37 AB (Rec: 08/01/20 11:14 AB [id number]) Physical Therapy Current Condition Current Condition Evaluation Date 08/01/20 Treatment Diagnosis TIA; difficulty in walking Onset Date 07/31/20 M3 PT-IP Subjective Start: 08/01/20 11:03 Freq: NEEDED Status: Active Protocol: Document 08/01/20 10:37 AB (Rec: 08/01/20 11:14 AB [email or web address]) Subjective Physical Therapy Visit Type Type Initial Evaluation Visit Start Time 10:37 Visit Stop Time 11:05 Total Visit Minutes 28 Number of PROFESSIONAL SKATEBOARDER Visits 0 Physical Therapy Visit Comments Patient Comments pt is agreeable to do PT Therapy Pain Assessment Pain Present Pain Present Denied Pain M4 PT-IP Mobility and Gait Start: 08/01/20 11:03 Freq: NEEDED Status: Active Protocol: Document 08/01/20 10:37 AB (Rec: 08/01/20 11:14 AB [email or web address]) PT-Bed Mobility Assessment Supine to Sit Supine to Sit Independent PT-Transfer Assessment Sit to and From Stand Sit to and from Stand Standby Assistance Equipment Transfer Assistive Device Bed Rail Orthotic/Prosthetic Devices or Brace: No Transfers Transfer Destination Chair Transfer Technique ambulated without AD Transfer Ability Level of Assist Standby Assistance Comments Mobility Comments BP in supine: 138/76. pt completed supine to sit independent. able to sit on EOB SBA. ambulated in room without AD SBA. c/o slight lightheadedness after ambulation. BP checked: 153/ 78. Tinetti balance assessment completed: whic relates to low fall risk. with with slight lateral trunk lean to the R and antalgic gait but without LOB during ambulation. pt agreed to sit up on chair and positioned. call light and table placed within reach. Gait Assessment Gait Gait Assistance Required: Standby Assistance Distance (Feet) 50 Able to Maintain Weight Bearing Status Yes During Gait Assistive Devices Assistive Device Gait Belt Orthotic/Prosthetic Devices or Brace: No Gait Deviations General Gait Pattern Antalgic,Lateral Trunk Lean PT-Balance Assessment Sitting Balance and Reactions Static Sitting Balance Ability Normal Dynamic Sitting Balance Ability Normal Standing Balance and Reactions Static Standing Balance Ability Good Dynamic Standing Balance Ability Good Device Used without AD Functional Assessments Functional Tests Tinetti Balance and Gait Assessment : low fall risk M5 PT-IP Objective Assessments Start: 08/01/20 11:03 Freq: NEEDED Status: Active Protocol: Document 08/01/20 10:37 AB (Rec: 08/01/20 11:14 AB [email or web address]) Orientation Orientation/Cognition Level of Alertness Alert Orientation Name,Place,Situation Language Function Ability No Deficits Noted Safety Awareness Understands Safety Issues Memory Description No Deficits Noted Gross Range of Motion Lower Extremity ROM Assessment Within Functional Limits Strength Lower Extremity Strength Assessment Within Functional Limits Coordination Assessment Gross Coordination Gross Coordination WNL Muscle Tone Muscle Tone WNL Yes M6 PT-IP Treatment Start: 08/01/20 11:03 Freq: NEEDED Status: Active Protocol: Document 08/01/20 10:37 AB (Rec: 08/01/20 11:14 AB [id number]) Physical Therapy Treatment Education Education Provided Safety M7 PT-IP Assessment and Plan Start: 08/01/20 11:03 Freq: NEEDED Status: Active Protocol: Document 08/01/20 10:37 AB (Rec: 08/01/20 11:14 AB [id number]) PT Summary Assessment and Plan Potential Rehabilitation Potential Good Status of Condition at Evaluation Stable Summary Impairments Pain,ROM,Strength,Balance, Coordination,Sensation,Tone, Cognition,Bed Mobility, Transfers,Gait,Activity Tolerance Assessment Summary PT eval completed and no further PT intervention indicated at this time. Tinetti balance assessment: which relates to low fall risk. pt with antalgic gait but without LOB during ambulation. c/o lightheadedness during ambulation but steady with gait. pt plans to go home with spouse to assist her as needed. pt is at [facility]. informed pt and nurse that no PT needs at this time and agreed. Frequency of Treatment Frequency Of Treatment Discharge Recommendations To Nursing Amount of Assist Needed Standby Assistance Discharge Recommendations PT Discharge Recommendations Home with Assistance Transportation Needs at Discharge Private Vehicle
--- NOTE | 2020-08-01 10:42 | CM.DANOTE ---
DCP/Assessment: Reviewed chart. Patient is a 80yr old female admitted to I.. with complaints of neurological deficit. PCP is Dr. Kohli. Primary payor is 1)Medicare 2)[facility]. Met with patient this AM, spouse at bedside explained CM/SW role. Patient alert and oriented at time of visit but does appear to have some anxiety. Patient reports that she resides in [facility] with spouse. Patient indicates that she is completely I at baseline. Patient does report that she has gout and does use/has walker at home if needed during gout flare up. Patient reports that she feels anxious because her home medications have not been given RN aware and following up with provider. Patient scheduled for ECHO and MRI today. It is anticipated that patient will d/c home if work up negative. Patient reports that she would like to go home today. P: Work up in progress. Anticipate patient will d/c home if testing done today is negative. [employer] Discharge Planning/Care Management CM Discharge Assessment Start: 08/01/20 10:37 Freq: Status: Active Protocol: Document 08/01/20 10:37 KJS (Rec: 08/01/20 10:42 KJS [id number]) Discharge Planning Assessment Assigned Identity Management Developer [employer] Contact Information Moise Frazier (spouse) ph# Advance Directives? Yes Advance Directives on File No History Provided By Patient,Family Member,Medical Record Prior Living Arrangements House Household Members spouse Type of transporation used prior to Drives own vehicle admit Independent with ADL's Yes Is patient alert and oriented? Yes Caregiver for Another No DME Already Rented / Owned FWW / Walker Comment Patient has walker for use at home when she has Gout flare up. Patient uses no DME at baseline. Barriers to Discharge No Discharge Plan Home Transportation Arrangement Spouse to provide transport upon discharge. Referrals Initiated None needed Whiteboard Updated in Patient Room with Yes name and ext. # of Identity Management Developer Review Status In Process Next Review Type Continued Stay Review
[2020-08-01] MEDS: allopurinoL 100 MG TABLET 200 MG PO (10:49)
[2020-08-01] MEDS: carvediloL 12.5 MG TABLET 25 MG PO (10:50)
[2020-08-01] MEDS: CHLORTHALIDONE 25 MG TABLET PO (10:50)
[2020-08-01] MEDS: TRIMETH/SULFA 160/800 (DS) TABLET 1 TAB PO (13:57)
--- NOTE | 2020-08-01 22:58 | P.DS_ITS ---
History of Present Illness History of Present Illness Chief complaint: HEAD LIGHTNESS Narrative: Per H and P by Alayna Flores: Patient is a 80-year-old female Sheela Frazier who presented to the ED with her in the chief complaint of an episode of dizziness, ataxia and blurred vision that happened just after lunch today and lasted about 20 minutes. She denies other neurologic symptoms such as trouble with speech, confusion or unilateral numbness, tingling or weakness. She denies any headache, pressure or pain. She denies any recent injury, illness, or trauma. She denies any change in medications or diet. She states she has had an episode or two like this in the past but never sought medical attention. She was quite hypertensive on arrival but not symptomatic at that time. She denies any history of heart attack or stroke but does say few years ago she had an episode that lasted min utes to hours in which she describes what sounds like an expressive aphasia that resolved and was not pursued or evaluated by her doctors. Patient is asymptomatic upon admit. Is resting comfortably in bed and has no concerns at this time. Patient's only medical history is hypertension, hyperlipidemia, and gout. She states that she had a complete cardiac workup history approximately 2-3 years ago without issue. The patient is unable to tell me what her medications are, as she believes they would be in our system. There is no chart history of this patient in our system. Patient's spouse will bring us her list of medications as soon as he is able. Patient refused atorvastatin, stating martina t she cannot tolerate statin medication and takes a non-statin medication. Patient states that she has not received the COVID vaccination nor will she due to prior reactions to previous vaccines. Patient continues to be asymptomatic with an NIH score of 0. Patient's initial blood pressure 219/102 has now resolved to 134/82 patient's vitals are unremarkable, patient's blood count and chemistries are for the most part unremarkable with the exception of a GFR 51.3. Patient's head CT is without any abnormal TS, EKG: Sinus rhythm with a ventricular rate of 58, without ST or T-wave changes. Patient is admitted for TIA/stroke rule out, patient is outside tPA protocol window. Discharge Providers Provider Date of admission: 07/31/20 20:39 Discharge Date: 08/01/20 Primary care physician: Pako Kohli MD Consults: 07/31/20 20:45 Consult to Physical Therapy Evaluate & Treat Comment: TIA Physician Instructions: Evaluate and Treat Discharge provider: Franc Bell MD Summary Hospital Course Discharge Diagnosis: 1. TIA 2. Atrial Septal aneurysm 3. UTI 4. HTN 5. HL 6. Obesity, BMI of 31.1 Hospital Course: Ms. Frazier was admitted with blurry vision, uncoordination and concern for possible stroke. MRI showed no evidence of acute stroke. ECHO showed a atrial septal aneurysm that was noted on January 2018 as well. This is possibly a source of her TIA. Per cardiology recommend antiplatelet treatment for the septal aneurysm. She had a probable mild UTI, with cultures still preliminary on discharge, she was discharged on short course of Bactrim. Per the patient she has had reaction to lipitor and is hesitant to start another statin, and she thinks she has tried many others but is not sure. She is recommended medically to start a statin with concern for TIA, but she will follow up with her PCP on this. She was discharged newly on aspirin for the TIA and atrial septal aneurysm Exam Vital Signs (past 8 hours): Oxygen Delivery Method Room Air Oxygen Flow Rate 0 Narrative Exam Narrative: GEN: no acute distress CV: regular rate and rhythm PULM: clear bilaterally ABD: soft, nontender, nondistended NEURO: no focal deficits, cn 2-12 intact Objective Labs Result Diagrams: 07/31/20 18:40 08/01/20 06:10 Labs: Laboratory Results - last 24 hr 08/01/20 08/01/20 08/01/20 04:29 06:10 06:10 Sodium 140 Potassium 3.5 Chloride 104 Carbon Dioxide 29 BUN 23 H Creatinine 0.74 Estimated GFR > 60.0 BUN/Creatinine Ratio 31.1 H Glucose 104 Calcium 9.3 Troponin I < 0.012 NT-Pro-B Natriuret Pep 74 Urine Color Yellow Urine Appearance Clear Urine pH 7.0 Ur Specific [place] 1.025 Urine Protein Negative Urine Glucose (UA) Negative Urine Ketones Negative Urine Occult Blood Negative Urine Nitrate Negative Urine Bilirubin Negative Urine Urobilinogen 0.2 Ur Leukocyte Esterase Trace H Urine RBC None seen Urine WBC 1-5/hpf Ur Squamous Epith Cells 1-5 /hpf Urine Bacteria Few (2-10) H Ur Culture Indicated? Specimen cultured [facility] Medical History (Updated 07/31/20 @ 22:39 [facility] Essential hypertension Gout Hyperlipidemia Surgical History (Updated 07/31/20 @ 22:32 [facility] No history of previous surgery Family History Mother Heart attack Father Heart attack Social History household members: spouse Smoking Status: Never smoker Discharge Plan Discharge Plan Patient Disposition: Home Provider Discharge Comment: Ms. Frazier came in with blurry vision, dizziness, and poor coordination. These improved before coming to the hospital. She was evaluated for a possible stroke, but her CT of the head, and brain MRI showed no abnormality. ECHO of her heart showed no abnormality. Her labs showed possible mild urinary tract infection, and mild dehydration. She had high cholesterol, but has had reaction to statin medications before and was concerned about starting a new one. She is recommended to start taking a daily baby aspirin. To finish a course of antibiotics for possible urine infection. She will follow up with her primary to talk about starting statin medication. Discharge orders & Medications Prescriptions: New aspirin 81 mg tablet,delayed release (DR/EC) 81 mg PO DAILY Qty: 30 RF: 0 sulfamethoxazole-trimethoprim [Bactrim DS] 800-160 mg tablet 1 tab PO Q12H Qty: 6 RF: 0 Continued carvedilol 25 mg tablet 25 mg PO BID RF: 0 chlorthalidone 25 mg tablet 25 mg PO DAILY RF: 0 allopurinol 300 mg tablet 300 mg PO DAILY RF: 0 zolpidem 5 mg tablet 5 mg PO BEDTIME RF: 0 Follow up/Referrals: Pako Kohli MD [Primary Care Provider] - Discharge Data Primary Care Provider: Pako Kohli V Attending Provider: Alayna Flores Quality VTE Deep Vein Thrombosis/Pulmonary Embolism Present on Admission: No MIPS - DC The patient has current or prior documentation of left ventricular ejection fraction (LVEF) less than 40%, or moderate or severely depressed left ventricular systolic function.: No
== END 2020-08-01 14:30 | disposition home or self-care (01) ==
LOC: ED 19:11 → AC 20:40
PROVIDERS: Emergency Medicine; Admitting Provider Nurse Practitioner Family; Emergency Provider Emergency Medicine; PCP Internal Medicine; Referring Provider Emergency Medicine; Visit Provider Nurse Practitioner Family
DX: G45.9 Transient cerebral ischemic attack, unspecified (principal); I72.8 Aneurysm of other specified arteries; N39.0 Urinary tract infection, site not specified; H53.8 Other visual disturbances; I10 Essential (primary) hypertension; E78.5 Hyperlipidemia, unspecified; E66.9 Obesity, unspecified; Z68.31 Body mass index [BMI] 31.0-31.9, adult; Z20.822 Contact with and (suspected) exposure to COVID-19
CPT/HCPCS: 36415; 70450; 70548; 70553; 80048; 80053; 80061; 81001; 82550; 83690; 83735; 83880; 84484; 85025; 85610; 87086; 87635; 93005; 93306; 96360; 96361; 97161; 99284; C9803; G0378; A9579

== ENCOUNTER 2020-08-17 19:00 | Emergency (ER) | payer MEDICARE, SELFPAY ==
[2020-07-31 22:14] VITALS: BMI 31.1
[2020-08-17] VITALS (14 sets, daily range): BP systolic 116–172; BP diastolic 63–81; PULSE 56–68; RESP 18; TEMP 36.9; O2SAT 91–99
--- NOTE | 2020-08-17 19:12 | DI.CT.S_ITS ---
PROCEDURE: CT HEAD/BRAIN WO CON INDICATIONS: dizziness TECHNIQUE: Noncontrast 4.5 mm thick angled axial sections acquired from the foramen magnum to the vertex, with coronal and sagittal reformats. For radiation dose reduction, the following was used: automated exposure control, adjustment of mA and/or kV according to patient size. COMPARISON: [facility], CT, CT HEAD/BRAIN WO CON, 07/31/2020, 17:58. FINDINGS: Image quality: Excellent. CSF spaces: Basal cisterns are patent. No extra-axial fluid collections. The ventricles are symmetric in size and shape. Brain: No intracranial bleeds or masses. There is cerebral volume loss for age, with resultant ventricular and sulcal prominence. There are periventricular and deep white matter chronic small vessel ischemic changes. There is intracranial internal carotid artery atherosclerosis. Skull and face: Calvarium and visualized facial bones appear intact, without suspicious lesions. Sinuses: Visualized sinuses and mastoids are clear. IMPRESSION: No CT evidence of acute intracranial pathology. No significant changes from previous study. Dictated by: Adama Gerardo M.D. on 08/17/2020 at 19:47 Approved by: Adama Gerardo M.D. on 08/17/2020 at 19:48
[2020-08-17 19:36] LABS: Add Manual Diff / Slide Review NO; Basophils Absolute Auto 100 /uL (0-100); Basophils Percent Auto 0.9 % (0-2); Eosinophils Absolute Auto 100 /uL (0-450); Eosinophils Percent Auto 1.7 % (2-4); Hematocrit 44.9 % (36-46); Hemoglobin 14.9 g/dL (12.0-16.0); Lymphocytes Absolute Auto 2000 /uL (1100-4500); Lymphocytes Percent Auto 29.1 % (25-40); Mean Corpuscular HGB Conc 33.2 % (30-36); Mean Corpuscular Hemoglobin 28.8 PG (26-34); Mean Corpuscular Volume 86.8 fL (80-100); Monocytes Absolute Auto 500 /uL (0-900); Monocytes Percent Auto 7.7 % (3-14); Neutrophils Absolute Auto 4200 /uL (1500-7000); Neutrophils Percent Auto 60.6 % (50-75); Platelet Count 205 X10^3/uL (150-400); Red Blood Cell Count 5.18 X10^6/uL (4.0-5.2); Red Cell Distribution Width 14.9 % (11.6-14.8); White Blood Cell Count 6.9 X10^3/uL (4.5-11.0)
[2020-08-17 19:51] LABS: Alanine Aminotransferase 17 IU/L (<35); Albumin Globulin Ratio 1.2 (1.0-2.8); Alkaline Phosphatase 94 U/L (38-126); Aspartate Aminotransferase 30 IU/L (14-36); BUN Creatinine Ratio 23.1 (6-22); Bilirubin Total 0.4 mg/dL (0.2-1.3); Blood Urea Nitrogen 21 mg/dL (7-17); Calcium 9.5 mg/dL (8.4-10.2); Carbon Dioxide 32 mmol/L (22-32); Chloride 101 mmol/L (98-107); Creatine Kinase 47 U/L (30-135); Estimated Glomerular Filt Rate 59.8 mL/min (>60); Globulin 3.3 g/dL (1.7-4.1); Glucose 101 mg/dL (80-110); HEMOLYSIS 18 (0-50); Potassium 3.3 mmol/L (3.4-5.1); Sodium 141 mmol/L (137-145); Total Protein 7.3 g/dL (6.3-8.2)
[2020-08-17 20:02] LABS: Troponin I < 0.012 ng/mL (0.01-0.034)
--- NOTE | 2020-08-17 20:07 | PC.NURSE ---
Patient denies chest pain
--- NOTE | 2020-08-17 20:55 | ED_ITS ---
HPI - Dizziness General Chief Complaint: Dizziness Stated Complaint: TIA Time Seen by Provider: 08/17/20 19:13 Source: patient and family Mode of arrival: Ambulatory Limitations: no limitations History of Present Illness HPI Narrative: 80-year-old female nonsmoker with history of hyperlipidemia, hypertension and a TIA presents with a chief complaint of a vague headache and dizziness over the past day or 2. She denies any trauma nor fever chills. She denies runny nose, sore throat or cough. She states that her dizziness is worse upon standing in the seems to worsen her headache as well. She denies use of bl ood thinners. She denies focal neurologic findings such as blurred vision, trouble speech nor numbness, tingling or weakness. MD complaint: dizziness and lightheadedness Onset (ago): day(s) Timing: gradual onset Description: lightheadedness History of similar episodes: Yes History of trauma: No Severity: moderate Relieving factors: remaining still Exacerbating factors: movement and position Related Data Home Medications Medication Instructions Recorded Confirmed allopurinol 300 mg PO DAILY 07/31/20 07/31/20 carvedilol 25 mg PO BID 07/31/20 07/31/20 chlorthalidone 25 mg PO DAILY 07/31/20 07/31/20 zolpidem 5 mg PO BEDTIME 07/31/20 07/31/20 Previous Rx's Medication Instructions Recorded aspirin 81 mg PO DAILY #30 tab 08/01/20 sulfamethoxazole-trimethoprim 1 tab PO Q12H #6 tab 08/01/20 [Bactrim DS] Allergies Allergy/AdvReac Type Severity Reaction Status Date / Time acetaminophen [ACETAMINOPHEN] Allergy Intermediate Verified 08/17/20 19:11 phenyltoloxamine Allergy Intermediate Verified 08/17/20 19:11 [PHENYLTOLOXAMINE] lisinopril [LISINOPRIL] Allergy Unknown Verified 08/17/20 19:11 NOVAGESIC Allergy Intermediate Uncoded 08/17/20 19:11 Review of Systems Constitutional Constitutional: Denies chills, Denies fatigue, Denies fever(s), Denies frequent falls, Reports headache(s), Denies lethargy and Denies weakness Eyes Eyes: Denies change in vision, Denies eye discharge, Denies irritation and Denies loss of vision ENT Ears, Nose, Mouth, and Throat: Denies change in voice, Reports dizziness, Reports headache(s), Denies neck pain, Denies sore throat and Denies throat swelling Cardiovascular Cardiovascular: Denies chest pain, Denies irregular heart rhythm, Denies lightheadedness, Denies palpitations, Denies dyspnea, Denies dyspnea on exertion and Denies orthopnea Respiratory Respiratory: Denies cough, Denies dyspnea, Denies dyspnea on exertion and Denies wheezing Gastrointestinal Gastrointestinal: Denies abdominal pain, Denies change in bowel habits, Denies diarrhea, Denies nausea and Denies vomiting Musculoskeletal Musculoskeletal: Denies neck pain and Denies numbness Integumentary/Breasts Skin/Breast: Denies pruritus, Denies erythema, Denies rash and Denies wounds Neurologic Neurologic: Denies behavioral changes, Denies confusion, Reports dizziness, Denies frequent falls, Reports headache(s), Denies loss of vision, Denies numbness and Denies weakness Psychiatric Psychiatric: Denies anxiety, Denies behavioral changes, Denies confusion, Denies depression, Denies homicidal ideation and Denies suicidal ideation Endocrine Endocrine: Denies fatigue, Denies flushing and Denies palpitations Hematologic/Lymphatic Hematologic/Lymphatic: Denies easy bruising Allergic/Immunologic Allergic/Immunologic: Denies urticaria, Denies throat swelling and Denies wheezing Patient History Medical History Essential hypertension Gout Hyperlipidemia Surgical History No history of previous surgery Family History Mother Heart attack Father Heart attack Social History household members: spouse Smoking Status: Never smoker Smoking Status: Never smoker alcohol intake frequency: 0-2 drinks per day Substance Use Type: does not use Exam Narrative Exam Narrative: GENERAL: [80] year old patient appears stated age. Well- developed patient, in mild distress. HEAD: Atraumatic. Normocephalic. EYES: Pupils equal round and reactive. Extraocular motions intact. No scleral icterus. No injection or drainage. No nystagmus ENT: Nose without bleeding, purulent drainage. Throat without erythema, tonsillar hypertrophy or exudate. Airway patent. NECK: Trachea midline. Non tender CARDIOVASCULAR: Regular rate and rhythm without murmurs, gallops, or rubs. RESPIRATORY: Clear to auscultation. Breath sounds equal bilaterally. No wheezes, rales, or rhonchi. GASTROINTESTINAL: Abdomen soft, non-tender, nondistended. EXTREMITIES: No edema or joint tenderness. BACK: Nontender without deformity or crepitance. No flank tenderness. NEURO: AOx3. SKIN: No rash or erythema of visible areas NIH Stroke Scale 1a. LOC: Patient is alert and keenly responsive (0) 1b. LOC Questions: Patient answers both LOC questions accurately (0) 1c. LOC Commands: Patient performs both tasks correctly (0) 2. Best Gaze: Normal (0) 3. Visual: No visual loss (0) 4. Facial palsy: Normal symmetrical movements (0) 5. Motor arm: No drift (0) 6. Motor leg: No drift (0) 7. Limb ataxia: Absent (0) 8. Sensory: Normal (0) 9. Best language: No aphasia; normal (0) 10. Dysarthria: Normal (0) 11. Extinction and inattention: No abnormality (0) NIHSS: 0 Initial Vital Signs Initial Vital Signs: Vital Signs Temperature 98.5 F 08/17/20 19:08 Pulse Rate 68 08/17/20 19:08 Respiratory Rate 18 08/17/20 19:08 Blood Pressure 172/81 H 08/17/20 19:08 Pulse Oximetry 99 08/17/20 19:08 Course Orders Ordered: ED Orders 08/17/20 20:55 CT angio head and neck Stat Vital Signs Vital signs: Vital Signs - 8 hr 08/17/20 21:00 08/17/20 21:30 08/17/20 22:00 Pulse Rate 61 58 L 57 L Pulse Rate [Orthostatic Lying] Pulse Rate [Orthostatic Sitting] Pulse Rate [Orthostatic Standing] Blood Pressure Blood Pressure [Orthostatic Lying] Blood Pressure [Orthostatic Sitting] Blood Pressure [Orthostatic Standing] Pulse Oximetry 97 95 97 08/17/20 22:08 08/17/20 22:23 08/17/20 22:24 Pulse Rate 56 L 57 L 58 L Pulse Rate [Orthostatic Lying] Pulse Rate [Orthostatic Sitting] Pulse Rate [Orthostatic Standing] Blood Pressure 129/67 116/72 126/75 Blood Pressure [Orthostatic Lying] Blood Pressure [Orthostatic Sitting] Blood Pressure [Orthostatic Standing] Pulse Oximetry 96 94 91 08/17/20 22:25 08/17/20 22:29 08/17/20 22:30 Pulse Rate 62 56 L Pulse Rate [Orthostatic Lying] 62 Pulse Rate [Orthostatic Sitting] 57 L Pulse Rate [Orthostatic Standing] 62 Blood Pressure 129/68 Blood Pressure [Orthostatic Lying] 116/72 Blood Pressure [Orthostatic Sitting] 126/75 Blood Pressure [Orthostatic Standing] 129/68 Pulse Oximetry 94 98 MDM - Dizziness Lab Data Result diagrams: 08/17/20 19:30 08/17/20 19:30 Labs: Lab Results 08/17/20 08/17/20 Range/Units 19:30 19:30 WBC 6.9 (4.5-11.0) X10^3/uL RBC 5.18 (4.0-5.2) X10^6/uL Hgb 14.9 (12.0-16.0) g/dL Hct 44.9 (36-46) % MCV 86.8 (80-100) fL MCH 28.8 (26-34) PG MCHC 33.2 (30-36) % RDW 14.9 H (11.6-14.8) % Plt Count 205 (150-400) X10^3/uL Neut % (Auto) 60.6 (50-75) % Lymph % (Auto) 29.1 (25-40) % [place] % (Auto) 7.7 (3-14) % Eos % (Auto) 1.7 L (2-4) % Baso % (Auto) 0.9 (0-2) % Neut # (Auto) 4200 (3598-9530) /uL Lymph # (Auto) 2000 (3784-7540) /uL [place] # (Auto) 500 (0-900) /uL Eos # (Auto) 100 (0-450) /uL Baso # (Auto) 100 (0-100) /uL Sodium 141 (137-145) mmol/L Potassium 3.3 L (3.4-5.1) mmol/L Chloride 101 (98-107) mmol/L Carbon Dioxide 32 (22-32) mmol/L BUN 21 H (7-17) mg/dL Creatinine 0.91 (0.52-1.04) mg/dL Estimated GFR 59.8 L (>60) mL/min BUN/Creatinine Ratio 23.1 H (6-22) Glucose 101 (80-110) mg/dL Calcium 9.5 (8.4-10.2) mg/dL Total Bilirubin 0.4 (0.2-1.3) mg/dL AST 30 (14-36) IU/L ALT 17 (<35) IU/L Alkaline Phosphatase 94 (38-126) U/L Total Creatine Kinase 47 (30-135) U/L CK-MB (CK-2) TNP CK-MB (CK-2) Rel Index TNP Troponin I < 0.012 (0.01-0.034) ng/mL Total Protein 7.3 (6.3-8.2) g/dL Albumin 4.0 (3.5-5.0) g/dL Globulin 3.3 (1.7-4.1) g/dL Albumin/Globulin Ratio 1.2 (1.0-2.8) Imaging Data CT scan - head: Radiologist's Impression: Sheela Frazier 80 F [address] [id number] Scan ReportSigned Patient: KarinSheela DMR#: [id number]: [id number]:[id number]/Sex: 80 / FDate of Service: 08/17/20Loc: EDAccession Number: [id number] Procedure: CT head/brain wo con Ordering Provider: Arun Robledo D.O. PROCEDURE: CT HEAD/BRAIN WO CON INDICATIONS: dizziness TECHNIQUE: Noncontrast 4.5 mm thick angled axial sections acquired from the foramen magnum to the vertex, with coronal and sagittal reformats. For radiation dose reduction, the following was used: automated exposure control, adjustment of mA and/or kV according to patient size. COMPARISON: [facility], CT, CT HEAD/BRAIN WO CON, 07/31/2020, 17:58. FINDINGS: Image quality: Excellent. CSF spaces: Basal cisterns are patent. No extra-axial fluid collections. The ventricles are symmetric in size and shape. Brain: No intracranial bleeds or masses. There is cerebral volume loss for age, with resultant ventricular and sulcal prominence. There are periventricular and deep white matter chronic small vessel ischemic changes. There is intracranial internal carotid artery atherosclerosis. Skull and face: Calvarium and visualized facial bones appear intact, without suspicious lesions. Sinuses: Visualized sinuses and mastoids are clear. IMPRESSION: No CT evidence of acute intracranial pathology. No significant changes from previous study. Dictated by: Adama Gerardo M.D. on 08/17/2020 at 19:47 Approved by: Adama Gerardo M.D. on 08/17/2020 at 19:48 CTA Head/Neck: Radiologist's Impression: Chart Viewer Diagnostics DATE TYPE STATUS REF RANGE/AUTHOR Hx Today 20:55 Adama Gerardo Today 19:12 Adama Gerardo 07/31/20 20:44 John Velasquez 07/31/20 20:40 Gold Nazario 07/31/20 20:39 07/31/20 17:53 Alton George Shirley D 80, F0 1940 [facility] ER, Main ED R10 Dizziness Search Chart No Data to Display ONSET Today 20:00 Sheela Frazier 80 F [address] Scan ReportSigned Patient: KarinSheela ESPINOZA#: [id number]: [id number]:[id number]/Sex: 80 / FDate of Service: 08/17/20Loc: EDAccession Number: [id number] Procedure: CT angio head and neck Ordering Provider: Arun Robledo D.O. PROCEDURE: CT ANGIO HEAD AND NECK INDICATIONS: dizziness, head pain TECHNIQUE: After the administration of intravenous contrast, 1 mm thick sections acquired from the aortic arch through the [place] of Ambriz. Post-contrast 4.5 mm thick sections then re-acquired from the foramen magnum to the vertex. 3-dimensional qfbjmmf-kfdnlgsyc-nsmmtevepg (MIP) and/or volume rendering reformats were acquired of the central intracranial vasculature and neck separately. COMPARISON: [facility], CT, CT HEAD/BRAIN WO CON, 08/17/2020, 19:20. FINDINGS: Image quality: Excellent. BRAIN: CSF spaces: Ventricles are normal in size and shape. Basal cisterns are patent. No extra-axial fluid collections. Brain: No midline shift. No intracranial bleeds or masses. Lee-white matter interface appears intact. No area of abnormal intracranial enhancement is seen. Skull and face: Calvarium and facial bones appear intact, without suspicious lesions. Orbits appear normal. Sinuses: Sinuses and mastoids are clear. HEAD CT ANGIOGRAPHY: Anterior circulation: Intracranial internal carotid arteries are normal in size and flow. The flow within the paired anterior cerebral arteries is normal and symmetric. The flow within the middle cerebral arteries is normal and symmetric. The anterior communicating artery is seen. No aneurysms are seen. Posterior circulation: Visualized portions of the vertebral arteries demonstrat e normal caliber, and join to form a normal appearing basilar artery. Flow within the posterior cerebral arteries is normal and symmetric. No aneurysms are seen. NECK CT ANGIOGRAPHY: Carotid system: [id number] amount of atherosclerotic calcifications are noted involving aortic arch. The great vessels demonstrate a conventional anatomy as they arise from the aortic arch. The origins of the common carotid arteries appear patent. The common carotid arteries demonstrate normal caliber and courses. The bifurcation regions are both widely patent. The internal carotid arteries demonstrate normal calibers and courses. Posterior circulation: The origins of the vertebral arteries both appear widely patent. The more superior extracranial portions of both vertebral arteries also demonstrate normal courses and calibers. They join to form a normal appearing basilar artery. Soft tissues: Visualized neck soft tissues demonstrate no suspicious abnormalities. Bones: No suspicious bony lesions. Visualized cervical spine appears normally aligned. IMPRESSION: 1. No CT evidence of acute intracranial pathology. No area of abnormal enhancement. 2. No hemodynamically significant stenosis or aneurysm is seen in intracranial circulation. 3. No hemodynamically significant stenosis is noted in bilateral carotid arteries or vertebral arteries. Any quantitative measurements of stenosis were performed using NASCET criteria. Dictated by: Adama Gerardo M.D. on 08/17/2020 at 21:32 Approved by: Adama Gerardo M.D. on 08/17/2020 at 21:34 MDM Narrative Medical decision making narrative: Headache/dizziness considerations include, but not limited to: Subarachnoid hemorrhage, but unlikely as patient denies sudden onset of pain, not worst of life, or neck pain Meningitis considered, but thought unlikely given lack of Brudzinski's, Kernig's sign, altered mental status or fever Giant cell arteritis considered, but thought unlikely given lack of unilateral findings, pain in taoist, vision change HTN Emergency considered, but thought unlikely given normal vitals Other serious diagnoses considered unlikely given lack of red flag findings such as sudden onset, increasing frequency, immunocompromise, systemic signs (fever, chills, stiff neck, or rash), focal neurologic findings, trauma, blood thinners, etc. Discharge Plan Departure Patient Disposition: Home Clinical Impression: Headache, Dizziness Instructions: DI for Dizziness-Nonvertigo Activity Restrictions/Additional Instructions: *You have been diagnosed with [ atypical headache and dizziness. Your exam, labs, and imaging are very reassuring. ] *What to do: *Please continue to take your regular medications as directed. [ ] New medication prescriptions sent to your pharmacy: [ ] [ ] New medication written as a paper prescription [ x] No new medications given *Please follow up with your primary care provider in 2-3 days, call for an appointment. Let them know you were seen in the Emergency Department and that we ask that you be seen in follow up. We will electronically transmit a record of today's note if your PCP is in our system *If you do not have a primary care provider please contact the [facility] Resource line at [phone]. They will ask some questions about your medical history and help get you set up with a doctor in the community. *Return to ER if you should have any new, worsening or concerning symptoms, such as [ fever > 101F, neck pain or stiffness, vomiting, confusion, seizure, focal weakness, vision change, speech deficit or other concerning symptoms ] Prescriptions: No Action carvedilol 25 mg tablet 25 mg PO BID RF: 0 chlorthalidone 25 mg tablet 25 mg PO DAILY RF: 0 allopurinol 300 mg tablet 300 mg PO DAILY RF: 0 zolpidem 5 mg tablet 5 mg PO BEDTIME RF: 0 aspirin 81 mg tablet,delayed release (DR/EC) 81 mg PO DAILY Qty: 30 RF: 0 sulfamethoxazole-trimethoprim [Bactrim DS] 800-160 mg tablet 1 tab PO Q12H Qty: 6 RF: 0 Referrals: Pako Kohli MD [Primary Care Provider] -
--- NOTE | 2020-08-17 22:31 | PC.NURSE ---
Pt ambulated with a steady gait without assistance.
== END 2020-08-17 23:09 | disposition home or self-care (01) ==
PROVIDERS: Emergency Provider Emergency Medicine; PCP Internal Medicine
DX: R51.9 Headache, unspecified (principal); R42 Dizziness and giddiness
CPT/HCPCS: 36415; 70450; 70496; 70498; 80053; 82550; 84484; 85025; 93005; 93010; 99284; Q9967

== ENCOUNTER → 2022-08-02 15:38 | Outpatient (CLI) | payer MEDICARE, SELFPAY ==
[2022-08-02 14:32] VITALS: BMI 31.1
[2022-08-02 16:28] LABS: Influenza A - CEPHEID Flu A NEGATIVE (NEGATIVE); Influenza B - CEPHEID Flu B NEGATIVE (NEGATIVE); Respiratory Syncytial Virus Negative (Negative)
[2022-08-02 16:48] LABS: COVID-19 CEPHEID 4-PLEX PCR POSITIVE (Negative)
== END ==
PROVIDERS: PCP Internal Medicine; Visit Provider Physician Assistant
DX: R05.1 Acute cough (principal)
CPT/HCPCS: 0241U

== ENCOUNTER → 2022-09-12 11:26 | Outpatient (CLI) | payer MEDICARE, SELFPAY ==
[2022-08-03 16:40] VITALS: BMI 31.1
--- NOTE | 2022-09-12 11:29 | DI.RAD.S_ITS ---
PROCEDURE: XR KNEE LT 3V INDICATIONS: Left knee pain TECHNIQUE: 3 views of the knee were acquired. COMPARISON: [facility], , KNEE 1-2 VIEWS LEFT, 10/20/2009, 13:36. FINDINGS: Bones: No fractures or dislocations. No suspicious bony lesions. Tricompartmental arthritic change. No erosions. Soft tissues: Feqe-eb-xsidcrhe joint effusion. No suspicious soft tissue calcifications. Chondrocalcinosis. IMPRESSION: No visualized acute fracture or dislocation. However, if clinical concern and/or pain persist, short interval imaging followup in 7-10 days is recommended, as occult injury cannot be definitively excluded. Dictated by: Amelia Acevedo M.D. on 09/12/2022 at 16:31 Approved by: Amelia Acevedo M.D. on 09/12/2022 at 16:32
== END ==
PROVIDERS: PCP Student in an Organized Health Care Education/Training Program; Referring Provider Nurse Practitioner Family; Visit Provider Nurse Practitioner Family
DX: M11.262 Other chondrocalcinosis, left knee (principal); M25.562 Pain in left knee; M25.462 Effusion, left knee
CPT/HCPCS: 73562

== ENCOUNTER → 2023-11-17 13:27 | Outpatient (CLI) | payer MEDICARE, SELFPAY ==
[2022-08-03 16:40] VITALS: BMI 31.1
--- NOTE | 2023-11-17 13:31 | DI.RAD.S_ITS ---
PROCEDURE: XR KNEE RT 3V INDICATIONS: KNEE PAIN TECHNIQUE: 3 views of the knee were acquired. COMPARISON: No prior x-ray right knee for comparison. Comparison can be made to x-ray left knee [facility], XR KNEE LT 3V, 09/12/2022, 11:30. FINDINGS: Severe diffuse joint space calcifications, chondrocalcinosis, commonly calcium pyrophosphate deposition. 1 cm calcifications posteriorly commonly fabella or other heterotopic calcification. Intra-articular loose bodies could be considered. [id number]-bb-[id number] degenerative changes of the right knee predominantly in the medial and lateral greater than patellofemoral compartments. Mild knee joint effusion on the lateral image. No radiographic evidence of displaced fracture, dislocation or high attenuation soft tissue foreign body. IMPRESSION: Severe chondrocalcinosis. 1 cm calcifications posteriorly. [id number] degenerative changes. Mild knee joint effusion. Dictated by: Michael Crawford M.D. on 11/17/2023 at 15:22 Approved by: Michael Crawford M.D. on 11/17/2023 at 15:37
== END ==
LOC: RAD 13:30
PROVIDERS: PCP Internal Medicine; Referring Provider Internal Medicine; Visit Provider Internal Medicine
DX: M11.261 Other chondrocalcinosis, right knee (principal); M25.461 Effusion, right knee; M25.561 Pain in right knee
CPT/HCPCS: 73562

== ENCOUNTER → 2023-11-21 12:15 | Outpatient (CLI) | payer MEDICARE, SELFPAY ==
[2022-08-03 16:40] VITALS: BMI 31.1
--- NOTE | 2023-11-21 12:18 | DI.RAD.S_ITS ---
PROCEDURE: XR KNEE LT 3V INDICATIONS: Polyosteoarthritis, unspecified TECHNIQUE: 3 views of the knee were acquired. COMPARISON: [facility], [facility], XR KNEE RT 3V, 11/17/2023, 13:40. FINDINGS: Bones: No fractures or dislocations. Tricompartment osteophytes. Chondrocalcinosis. No suspicious bony lesions. Soft tissues: No joint effusion. No suspicious soft tissue calcifications. IMPRESSION: CPPD degenerative arthropathy. Dictated by: Caleb Pimentel M.D. on 11/21/2023 at 13:58 Approved by: Caleb Pimentel M.D. on 11/21/2023 at 14:00
== END ==
PROVIDERS: PCP Internal Medicine; Referring Provider Internal Medicine; Visit Provider Internal Medicine
DX: M11.862 Other specified crystal arthropathies, left knee (principal); M15.9 Polyosteoarthritis, unspecified; M11.262 Other chondrocalcinosis, left knee
CPT/HCPCS: 73562

== ENCOUNTER → 2024-09-05 16:23 | Outpatient (CLI) | payer MEDICARE, SELFPAY ==
[2022-08-03 16:40] VITALS: BMI 31.1
--- NOTE | 2024-09-05 16:26 | DI.RAD.S_ITS ---
PROCEDURE: XR CHEST 2V INDICATIONS: YO, EXERTIONAL CHEST PRESSURE TECHNIQUE: 2 views of the chest were acquired. COMPARISON: None. FINDINGS: Surgical changes and devices: None. Lungs and pleura: Mild left basilar pulmonary airspace disease. No pleural effusions or pneumothorax. Mediastinum: Mediastinal contours are normal. Heart size is normal. Atherosclerotic vascular calcifications. Bones and chest wall: No suspicious bony abnormalities. Soft tissues appear unremarkable. IMPRESSION: Mild left basilar pulmonary airspace disease. Dictated by: Bob Amos M.D. on 09/08/2024 at 17:23 Approved by: Bob Amos M.D. on 09/08/2024 at 17:24
== END ==
PROVIDERS: PCP Internal Medicine; Referring Provider Family Medicine; Visit Provider Family Medicine
DX: I20.89 Other forms of angina pectoris (principal); R06.09 Other forms of dyspnea
CPT/HCPCS: 71046